=== PATIENT | female | born 1975 | race Caucasian/White ===

== ENCOUNTER → 2016-12-08 | Outpatient (CLI) | payer MEDICARE, MEDICAID ==
[~2016-12-08] MED LIST: BUPR300T49 PO; CETI10TA24 PO; CHOL2000 PO; HYDR-3240 PO; PROP20TA PO
[2016-12-08 14:13] LABS: HEMOGLOBIN 14.9 g/dL (11.7-16.4)
== END | disposition home or self-care (01) ==
LOC: STAR 13:54
PROVIDERS: ATTEND Obstetrics & Gynecology Gynecologic Oncology
DX: N85.02 Endometrial intraepithelial neoplasia [EIN] (principal)
CPT/HCPCS: 36415; 85025

== ENCOUNTER 2016-12-19 05:39 | Day surgery (SDC) | payer MEDICARE, MEDICAID ==
[2016-12-07 12:26] VITALS: BP 158/94
[~2016-12-19] VITALS: Ht 151.1 cm; Wt 95.0 kg
[2016-12-19] MEDS ORDERED: LACTATED RINGERS 1,000 ML IV SCH (06:31)
[2016-12-19] MEDS ORDERED: GLIP5TAB10 PO (06:33)
[2016-12-19] MEDS ORDERED: HEPARIN 1,000 UNITS/ML, 10ML ONE (06:47)
[2016-12-19] MEDS ORDERED: INDOCYANINE GREEN 25 MG VIAL ONE (06:48)
[2016-12-19] MEDS ORDERED: BUPIVACAINE/PF-EPI 0.25% 1:200K ONE (06:48)
[2016-12-19] MEDS ORDERED: FENTANYL PF 250 MCG/5ML ONE (07:05)
[2016-12-19] MEDS ORDERED: MIDAZOLAM 1 MG/ML, 2ML ONE (07:05)
[2016-12-19] MEDS ORDERED: KETOROLAC 30 MG/1 ML ONE (07:51)
[2016-12-19] MEDS ORDERED: CEFAZOLIN 1,000 MG ONE (07:51)
[2016-12-19] MEDS ORDERED: DEXAMETHASONE 4 MG/ML, 1ML ONE (07:51)
[2016-12-19] MEDS ORDERED: ROCURONIUM 10 MG/ML ONE (07:51)
[2016-12-19] MEDS ORDERED: ONDANSETRON 2MG/ML, 2ML ONE (07:51)
[2016-12-19] MEDS ORDERED: PROPOFOL 10 MG/ML, 20ML ONE (07:51)
[2016-12-19] MEDS ORDERED: NEOSTIGMINE 1 MG/ML, 10ML ONE (07:51)
[2016-12-19] MEDS ORDERED: GLYCOPYRROLATE 0.2MG/1ML ONE (07:51)
[2016-12-19] MEDS ORDERED: HYDROmorphone 1 MG/ML, 1ML IV PRN (08:30)
[2016-12-19] MEDS ORDERED: MEPERIDINE/PF 25MG/0.5ML IVPush PRN (08:30)
[2016-12-19] MEDS ORDERED: HYDROcodone/APAP 7.5-325MG/15ML UDC PO PRN (08:30)
[2016-12-19] MEDS ORDERED: PROMETHAZINE 25 MG/ML, 1ML IV PRN (08:30)
[2016-12-19] MEDS ORDERED: hydrALAzine 20 MG/ML, 1ML IV PRN (08:30)
[2016-12-19] MEDS ORDERED: LABETALOL 5MG/ML, 20ML IV PRN (08:30)
[2016-12-19] MEDS ORDERED: ACETAMINOPHEN 325 MG TABLET PO PRN (08:30)
[2016-12-19] MEDS ORDERED: ONDANSETRON 2MG/ML, 2ML IVPush PRN (08:30)
[2016-12-19] MEDS ORDERED: FENTANYL PF 100 MCG/2ML ONE (10:33)
[2016-12-19] MEDS ORDERED: HYDROcodone/APAP 7.5-325MG/15ML UDC ONE (10:34)
[2016-12-19] MEDS: FENTANYL PF 100 MCG/2ML IV PRN ×2 (10:37→10:54)
[2016-12-19] MEDS ORDERED: LABETALOL 5MG/ML, 20ML ONE (10:47)
[2016-12-19] MEDS ORDERED: hydrALAzine 20 MG/ML, 1ML ONE (10:55)
== END 2016-12-19 13:05 | disposition home or self-care (01) ==
LOC: OUT 05:39
PROVIDERS: ATTEND Specialist
DX: C54.1 Malignant neoplasm of endometrium (principal); N84.0 Polyp of corpus uteri; D27.1 Benign neoplasm of left ovary; D27.0 Benign neoplasm of right ovary; N83.12 Corpus luteum cyst of left ovary; N83.11 Corpus luteum cyst of right ovary; E11.9 Type 2 diabetes mellitus without complications; Z90.49 Acquired absence of other specified parts of digestive tract; Z82.49 Family history of ischemic heart disease and other diseases of the circulatory system; Z72.89 Other problems related to lifestyle; Z87.891 Personal history of nicotine dependence; E66.01 Morbid (severe) obesity due to excess calories; Z68.41 Body mass index [BMI] 40.0-44.9, adult
CPT/HCPCS: 36415; 38570; 58571; 82962; 85025; 86850; 86900; 86923; 88305; 88307; 88331; 88333; J0690; J1100; J1885; J2250; J2405; J2704; J2710; J3010; J7120; J1644; J3490